=== PATIENT | female | born 1990 | race African-American/Black ===

== ENCOUNTER 2016-07-06 11:37 | Emergency (ER) | payer OTHER ==
[~2016-07-06] VITALS: Ht 167.6 cm; Wt 132.9 kg
[~2016-07-06 11:37] MED LIST: FLEXERIL PO; IBUPROFEN 800800 M1 PO; IBUPROFEN 800800 MG PO
[2016-07-06 11:38] VITALS: BP 131/90
[2016-07-06] MEDS ORDERED: MOBIC15 MG PO (12:31)
[2016-07-06] MEDS ORDERED: PENICILLIN V P500 MG PO (12:31)
== END 2016-07-06 12:42 | disposition home or self-care (01) ==
LOC: ER 11:37
DX: K02.9 Dental caries, unspecified (principal); K04.01 Reversible pulpitis

== ENCOUNTER 2018-02-22 13:59 | Emergency (ER) | payer OTHER ==
[~2018-02-22] VITALS: Ht 170.2 cm; Wt 138.8 kg
[~2018-02-22 13:59] MED LIST changes: +MOBIC15 MG PO; +MOBIC7.5 MG PO; +PENICILLIN V P500 MG PO
[2018-02-22 14:11] VITALS: BP 159/81
[2018-02-22] MEDS ORDERED: KEFLEX500 M1 PO (14:47)
[2018-02-22] MEDS ORDERED: MEDROLDOSEPACK PO (14:47)
== END 2018-02-22 14:55 | disposition home or self-care (01) ==
LOC: ER 13:59
DX: R21 Rash and other nonspecific skin eruption (principal)

== ENCOUNTER 2019-05-27 10:46 | Emergency (ER) | payer OTHER ==
[~2019-05-27] VITALS: Ht 170.2 cm; Wt 104.3 kg
[~2019-05-27 10:46] MED LIST changes: +KEFLEX500 M1 PO; +MEDROLDOSEPACK PO
[2019-05-27 11:40] LABS: URINE BILIRUBIN NEGATIVE (Negative); URINE BLOOD NEGATIVE (Negative); URINE CLARITY SL CLOUDY; URINE COLOR YELLOW; URINE GLUCOSE-RANDOM* NEGATIVE (Negative); URINE KETONES NEGATIVE (Negative); URINE LEUKOCYTES-REFLEX NEGATIVE (Negative); URINE NITRITE-REFLEX NEGATIVE (Negative); URINE PROTEIN (DIPSTICK) NEGATIVE (Negative); URINE UROBILINOGEN 0.2 E.U./dl (0.2-1.0)
[2019-05-27 11:52] LABS: ABSOLUTE NEUTROPHILS 11.9 thou/uL (1.4-8.2); BASOPHILS 0.4 % (0.0-2.0); HEMATOCRIT 32.8 % (37.0-47.0); HEMOGLOBIN 10.1 gm/dL (12.0-15.0); LYMPHOCYTES 13.4 % (24.0-44.0); MCH 23.9 pg (26.0-34.0); MCHC 30.7 g/dL (28.0-37.0); MCV 77.9 fL (80.0-100.0); MONOCYTES 3.8 % (1.0-8.0); PLATELET COUNT 371 thou/uL (150-400); POLYS 80.4 % (36.0-66.0); RBC 4.21 mil/uL (4.20-5.00); RDW 19.5 % (10.5-14.5); WBC 14.7 thou/uL (4.0-11.0)
[2019-05-27 12:02] LABS: CALCIUM 7.9 mg/dL (8.5-10.1); CREATININE 0.8 mg/dL (0.6-1.0)
[2019-05-27 12:03] LABS: POTASSIUM 4.3 mmol/L (3.5-5.1)
[2019-05-27 12:04] LABS: APTT 29.3 Seconds (24.5-32.8); PROTIME 10.6 Seconds (9.3-11.4)
[2019-05-27 12:08] LABS: ALBUMIN 2.7 g/dL (3.4-5.0); TOTAL BILIRUBIN 0.5 mg/dL (<0.1-1.0); TOTAL PROTEIN 7.8 g/dL (6.4-8.2)
[2019-05-27 12:12] LABS: ANISOCYTOSIS 1+; PLATELET ESTIMATE NORMAL
[2019-05-27] MEDS ORDERED: ANUSOL-HC25 MG RECTAL (12:46)
[2019-05-27 12:47] VITALS: BP 154/94
== END 2019-05-27 13:08 | disposition home or self-care (01) ==
LOC: ER 10:46
PROVIDERS: Physician Assistant
DX: K62.5 Hemorrhage of anus and rectum (principal); D64.9 Anemia, unspecified; D72.829 Elevated white blood cell count, unspecified; K30 Functional dyspepsia; E66.01 Morbid (severe) obesity due to excess calories; Z87.891 Personal history of nicotine dependence

== ENCOUNTER 2019-06-26 14:27 | Emergency (ER) | payer OTHER ==
[~2019-06-26] VITALS: Ht 170.2 cm; Wt 140.6 kg
[~2019-06-26 14:27] MED LIST changes: +ANUSOL-HC25 MG RECTAL
[2019-06-26] MEDS ORDERED: MELATONIN10 M3 PO (14:44)
[2019-06-26 15:14] LABS: URINE BILIRUBIN NEGATIVE (Negative); URINE BLOOD NEGATIVE (Negative); URINE CLARITY CLEAR; URINE COLOR YELLOW; URINE GLUCOSE-RANDOM* NEGATIVE (Negative); URINE KETONES NEGATIVE (Negative); URINE LEUKOCYTES-REFLEX NEGATIVE (Negative); URINE NITRITE-REFLEX NEGATIVE (Negative); URINE PROTEIN (DIPSTICK) NEGATIVE (Negative); URINE SPECIFIC GRAVITY 1.025 (1.005-1.035); URINE UROBILINOGEN 0.2 E.U./dl (0.2-1.0)
[2019-06-26 15:53] LABS: ABSOLUTE NEUTROPHILS 8.2 thou/uL (1.4-8.2); BASOPHILS 0.6 % (0.0-2.0); EOSINOPHILS 2.8 % (0.0-3.0); HEMATOCRIT 35.6 % (37.0-47.0); HEMOGLOBIN 10.9 gm/dL (12.0-15.0); MCH 24.4 pg (26.0-34.0); MCHC 30.5 g/dL (28.0-37.0); MCV 79.9 fL (80.0-100.0); MONOCYTES 4.8 % (1.0-8.0); PLATELET COUNT 373 thou/uL (150-400); POLYS 72.8 % (36.0-66.0); RBC 4.46 mil/uL (4.20-5.00); RDW 19.6 % (10.5-14.5); WBC 11.2 thou/uL (4.0-11.0)
[2019-06-26 15:55] LABS: ANION GAP 7 mmol/L (7-16); BUN 7 mg/dL (7-18); CALCIUM 8.4 mg/dL (8.5-10.1); CHLORIDE 102 mmol/L (98-107); CO2 27 mmol/L (21-32); CREATININE 0.8 mg/dL (0.6-1.0); GLUCOSE 103 mg/dL (74-106); POTASSIUM 3.9 mmol/L (3.5-5.1); SODIUM 136 mmol/L (136-145)
[2019-06-26 16:05] LABS: SGOT 21 U/L (15-37); SGPT 15 U/L (30-65); TOTAL BILIRUBIN 0.2 mg/dL (<0.1-1.0); TOTAL PROTEIN 8.3 g/dL (6.4-8.2); TROPONIN-I <0.06 ng/mL (<0.06)
[2019-06-26 16:38] VITALS: BP 179/90
--- NOTE | 2019-06-29 09:11 | EKG ---
[facility] [place] [address] ELECTROCARDIOGRAM REPORT Name: ALCIDES CHAVIS Room #: DEP [facility]#: [id number] Admission: 06/26/19 Attend Phys: Discharge: 06/26/19 Date of : 88 Report #: [id number] THIS REPORT FOR: cc: RADHA - Dhara family physician/PCP RADHA - Dhara family physician/PCP Navi Potter MD [facility] THIS REPORT FOR: //name// [facility] ED Test Date: 2019-06-26 Test Time: 14:34:00 Pat Name: ACLIDES CHAVIS Department: Room: Gender: Pusher Runner: : 1990 Requested By: Nettie Hart Order Number: [id number] MD: Navi Potter Measurements Intervals [place] Rate: 83 P: 20 [place]: 157 QRS: 22 QRSD: 88 T: 8 QT: 370 QTc: 435 Interpretive Statements Sinus rhythm Normal tracing No previous ECG available for comparison Electronically Signed On 06-29-2019 9:09:33 CDT by Navi Potter [email or web address] <ELECTRONICALLY SIGNED> By: Navi Potter MD, [facility] 06/29/19 0909 [id number] Navi Potter MD, FACC /EPI
== END 2019-06-26 16:38 | disposition home or self-care (01) ==
LOC: ER 14:27
PROVIDERS: Physician Assistant
DX: R07.89 Other chest pain (principal); R10.13 Epigastric pain; E66.01 Morbid (severe) obesity due to excess calories; Z68.42 Body mass index [BMI] 45.0-49.9, adult

== ENCOUNTER 2019-11-03 22:59 | Emergency (ER) | payer OTHER ==
[~2019-11-03] VITALS: Ht 167.6 cm; Wt 127.0 kg
[~2019-11-03 22:59] MED LIST changes: +MELATONIN10 M3 PO
[2019-11-03 23:02] VITALS: BP 126/99
[2019-11-04] MEDS ORDERED: KEFLEX500 M1 PO (00:20)
== END 2019-11-04 01:15 | disposition home or self-care (01) ==
LOC: ER 22:59
DX: L73.9 Follicular disorder, unspecified (principal)

== ENCOUNTER 2020-02-28 16:07 | Inpatient (IN) | payer OTHER ==
[~2020-02-28] VITALS: Ht 170.2 cm; Wt 117.9 kg
[2020-02-28 16:51] LABS: ABSOLUTE NEUTROPHILS 6.3 thou/uL (1.4-8.2); BASOPHILS 0.2 % (0.0-2.0); EOSINOPHILS 0.6 % (0.0-3.0); HEMATOCRIT 32.8 % (37.0-47.0); HEMOGLOBIN 10.4 gm/dL (12.0-15.0); LYMPHOCYTES 13.3 % (24.0-44.0); MCH 29.6 pg (26.0-34.0); MCHC 31.8 g/dL (28.0-37.0); MCV 93.2 fL (80.0-100.0); MONOCYTES 6.7 % (1.0-8.0); PLATELET COUNT 257 thou/uL (150-400); POLYS 79.2 % (36.0-66.0); RBC 3.52 mil/uL (4.20-5.00); RDW 21.4 % (10.5-14.5)
[2020-02-28 16:55] LABS: BE(vivo) -3.1 mmol/L (-2 to +3); HCO3 20.6 mmol/L (22.0-26.0); PCO2 32.4 mmHg (35.0-45.0); PO2 149.4 mmHg (80.0-100.0); pH 7.422 (7.360-7.450)
[2020-02-28 16:58] LABS: ANION GAP 13 mmol/L (7-16); BUN 5 mg/dL (7-18); CHLORIDE 101 mmol/L (98-107); CO2 23 mmol/L (21-32); CREATININE 0.9 mg/dL (0.6-1.0); GLUCOSE 98 mg/dL (74-106); POTASSIUM 3.6 mmol/L (3.5-5.1); SODIUM 137 mmol/L (136-145)
[2020-02-28 17:09] LABS: SGOT 25 U/L (15-37); SGPT 11 U/L (30-65); TOTAL BILIRUBIN 0.4 mg/dL (0.2-1.0); TOTAL PROTEIN 8.6 g/dL (6.4-8.2); TROPONIN-I <0.06 ng/mL (<0.06)
[2020-02-29] VITALS (7 sets, daily range): BP systolic 122–149; BP diastolic 66–85
--- NOTE | 2020-02-29 04:48 | NUR ---
ER ADMIT VSS. C/O MUSCLE TIGHTNESS FROM COUGHING. CALLED DANCE INSTRUCTOR AND GOT AN ORDER FOR NEW MED. VSS.
[2020-02-29 08:26] LABS: HEMATOCRIT 32.3 % (37.0-47.0); HEMOGLOBIN 10.3 gm/dL (12.0-15.0); MCH 29.1 pg (26.0-34.0); MCHC 31.9 g/dL (28.0-37.0); MCV 91.2 fL (80.0-100.0); RBC 3.54 mil/uL (4.20-5.00); RDW 21.1 % (10.5-14.5); WBC 5.4 thou/uL (4.0-11.0)
[2020-02-29 08:41] LABS: ALBUMIN 2.8 g/dL (3.4-5.0); CREATININE 0.6 mg/dL (0.6-1.0); DIRECT BILIRUBIN 0.1 mg/dL (<0.1-0.2); PHOSPHORUS 2.1 mg/dL (2.5-4.9); POTASSIUM 3.8 mmol/L (3.5-5.1); TOTAL BILIRUBIN 0.4 mg/dL (0.2-1.0); TOTAL PROTEIN 8.3 g/dL (6.4-8.2)
--- NOTE | 2020-02-29 16:21 | NUR ---
INITIAL ASSESSMENT: Received consult. APARNA reviewed chart and spoke with nursing and attending physician. Pt was admitted from home due to pneumonia/respiratory failure. Pt placed in Enhanced Isolation due to COVID-19. Pt is afebrile and on 4L of O2. Pt is on IV steroids and completing course of Remdesivir. APARNA spoke with pt via phone. Introduced role of SW. Pt is alert/orientated x 4. Pt reports she lives at home. Prior to admission, pt was independent with ADLs. No use of DME. Pt does not have a PCP. 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 Nursing provided pt with documentation needed for her employer. SW notified pt that [employer] will be contacting her to assist with Medicaid application and/or financial assistance. Pt verbalized understanding. Plan is for pt to discharge home when medically stable. APARNA is following to assist as needed with discharge planning.
[2020-03-01 04:17] VITALS: BP 141/72
--- NOTE | 2020-03-01 07:03 | NUR ---
progress pt a/o x4 up ad niles skin c/d/i iv to left wrist infusing d5ns@80cc/hr. up to br to void ambulated in rodríguez x1. reported pain that was controlled with iv pain medication. continue poc.
[2020-03-01 07:58] VITALS: BP 136/85
[2020-03-01 11:56] LABS: ANION GAP 11 mmol/L (7-16); BUN 9 mg/dL (7-18); CALCIUM 9.3 mg/dL (8.5-10.1); CHLORIDE 106 mmol/L (98-107); CO2 23 mmol/L (21-32); CREATININE 0.7 mg/dL (0.6-1.0); DIRECT BILIRUBIN < 0.1 mg/dL (<0.1-0.2); GLUCOSE 149 mg/dL (74-106); PHOSPHORUS 2.8 mg/dL (2.5-4.9); POTASSIUM 3.6 mmol/L (3.5-5.1); SGOT 13 U/L (15-37); SGPT 10 U/L (30-65); SODIUM 140 mmol/L (136-145); TOTAL BILIRUBIN 0.3 mg/dL (0.2-1.0); TOTAL PROTEIN 8.4 g/dL (6.4-8.2)
--- NOTE | 2020-03-01 14:57 | NUR ---
SW reviewed chart and spoke with nursing and attending physician. Pt remains in Enhanced Isolation due to COVID-19. Pt is afebrile and on 5L of O2. Pt is on IV steroids and completing course of Remdesivir. Pt has refused convalescent plasma. [employer] is working with pt for possible Medicaid application due to dx COVID-19. Plan is for pt to discharge home when medically stable. APARNA is following to assist as needed with discharge planning.
[2020-03-01 15:35] VITALS: BP 134/68
[2020-03-01 16:04] LABS: URINE BILIRUBIN NEGATIVE (Negative); URINE BLOOD NEGATIVE (Negative); URINE CLARITY SL CLOUDY; URINE COLOR YELLOW; URINE GLUCOSE-RANDOM* NEGATIVE (Negative); URINE KETONES NEGATIVE (Negative); URINE LEUKOCYTES-REFLEX NEGATIVE (Negative); URINE NITRITE-REFLEX NEGATIVE (Negative); URINE PROTEIN (DIPSTICK) 1+ (Negative); URINE SPECIFIC GRAVITY 1.025 (1.005-1.035); URINE UROBILINOGEN 0.2 E.U./dl (0.2-1.0)
[2020-03-01 16:17] LABS: SQUAMOUS 4-10 Moderate /LPF (0-3)
[2020-03-01 16:18] LABS: AMORPHOUS URATES Few /LPF (None Seen); BACTERIA-REFLEX 1-9 Few /HPF (None Seen); CASTS None Seen /LPF (None Seen); URINE RBC None Seen /HPF (0-2); URINE WBC-REFLEX 0-5 Rare /HPF (0-5)
[2020-03-01 19:26] VITALS: BP 130/84
--- NOTE | 2020-03-01 19:45 | NUR ---
PT WAS EDUCATED REGARDING CONVALESCENT PLASMA TRANSFUSION PER DR KIMBERLY GOMEZ AND SHE AGREES TO TRANSFUSION...
[2020-03-02 03:10] VITALS: BP 152/82
[2020-03-02 03:27] VITALS: BP 148/80; BP 152/81
--- NOTE | 2020-03-02 06:21 | NUR ---
PT MAKING PROGRESS TOWARDS GOALS. ORDER FOR CONVALESCENT PLASMAS RECEIVED. PT SIGNED CONSENT. PLASMA WAS GIVEN OVERNIGHT WITH NO OBSERVABLE NEGATIVE SIDE EFFECTS. SEE CHARTING.
[2020-03-02 09:22] VITALS: BP 127/86
[2020-03-02 12:22] VITALS: BP 152/79
--- NOTE | 2020-03-02 15:39 | NUR ---
APARNA reviewed chart and spoke with nursing and attending physician. Pt remains in Enhanced Isolation due to COVID-19. Pt is afebrile and on 2L of O2. Pt is on IV steroids and completing course of Remdesivir. Pt had convalescent plasma yesterday. SW received signed ppwk for [employer]. Left at nurses station for [employer] rep to picking tech today. Pt may qualify for Medicaid due to dx of COVID. APARNA spoke with pt via phone to discuss potential discharge needs. Pt states she is off of O2. Pt will need Health Resource Guide/prescription discount card when discharged. Pt may need assistance with medications. Plan is for pt to discharge home when medically stable. APARNA is following to assist as needed with discharge planning.
--- NOTE | 2020-03-02 15:57 | NUR ---
Assumed pt care at 7am.Pt in bed sleeping and refused light on when this rn walks into room and said she doesn't need any nursing staff at present.Rn encouraged pt to call for needs.At 9am,rn came to give am meds but pt refused and also lab draw.Dr Mukherjee notified, wanted this rn to call pt's mom for intervention.Radha chaves came to talk to pt around noon.Pt finally agreed to treatment and took meds.Assessment completed. vss and pt was sr/sb on monitor worker.No verbal c/o but pt continue to have dry cough and soa.Will continue to monitor.
[2020-03-02 17:40] VITALS: BP 136/84
[2020-03-02 19:38] VITALS: BP 151/82
[2020-03-03 04:30] VITALS: BP 155/81
--- NOTE | 2020-03-03 05:30 | NUR ---
PT MAKING PROGRESS TOWARDS GOALS. NOTED LUNGS CTA BUT DIMINISHED IN BOTH LOWER LOBES. SEE VS. PT ON ROOM AIR SINCE DAY TIME HOURS. NO COMPLAINTS VOICED OVERNIGHT.
[2020-03-03 06:20] LABS: ALBUMIN 2.9 g/dL (3.4-5.0); ANION GAP 12 mmol/L (7-16); BUN 13 mg/dL (7-18); CALCIUM 8.6 mg/dL (8.5-10.1); CHLORIDE 108 mmol/L (98-107); CO2 22 mmol/L (21-32); CREATININE 0.8 mg/dL (0.6-1.0); DIRECT BILIRUBIN < 0.1 mg/dL (<0.1-0.2); GLUCOSE 163 mg/dL (74-106); POTASSIUM 3.9 mmol/L (3.5-5.1); SGOT 19 U/L (15-37); SGPT 16 U/L (30-65); SODIUM 142 mmol/L (136-145); TOTAL BILIRUBIN 0.2 mg/dL (0.2-1.0); TOTAL PROTEIN 7.4 g/dL (6.4-8.2)
[2020-03-03 08:07] VITALS: BP 153/83
--- NOTE | 2020-03-03 11:19 | NUR ---
ASSUMED CARE AT 0700, ASSESSMENT AND VITAL SIGNS COMPLETED PER ICU PROTOCOL. DR. LOCK ROUNDED THIS AM, NO NEW ORDERS RECEIVED, PLAN OF CARE DISCUSSED. RN WILL CONTINUE TO MONITOR.
--- NOTE | 2020-03-03 13:12 | NUR ---
ON-GOING ASSESSMENT: CM REVIEWED CHART. PT REMAINS IN ENHANCED ISOLATION DUE TO COVID 19. PT CONTINUES ON REMDESIVIR. PT IS CURRENTLY ON ROOM AIR AND NOT REQUIRING OXYGEN. CM WILL CONTINUE TO FOLLOW POSSIBLE PLANS TO DISCHARGE HOME SOON.
[2020-03-03 15:49] VITALS: BP 186/96
[2020-03-03 19:00] VITALS: BP 147/90
[2020-03-04 04:38] VITALS: BP 141/73
--- NOTE | 2020-03-04 05:38 | NUR ---
PT MAKING PROGRESS TOWARDS GOALS. NO REPORTS OF SOA OVERNIGHT. PT ON ROOM AIR THROUGHOUT THE NIGHT.
[2020-03-04 07:26] VITALS: BP 145/69
[2020-03-04] MEDS ORDERED: AZITHROMYCIN500 MG PO (08:26)
[2020-03-04] MEDS ORDERED: PREDNISONE 20 M20 M1 PO (08:26)
[2020-03-04 10:51] VITALS: BP 145/69
--- NOTE | 2020-03-04 12:45 | NUR ---
ON-GOING ASSESSMENT: CM REVIEWED CHART AND PT HAS ORDERS TO DISCHARGE HOME TODAY. PT REPORTS TROUBLE WITH FINANCIAL STABILITY SO CM VOUCHERED HER MEDICATIONS AT [facility] COSTING 18 DOLLARS. APPROVED BY CM DIRECTOR. PT REPORTS NO FURTHER NEEDS FROM RISHI.
--- NOTE | 2020-03-04 13:08 | NUR ---
PT A&OX4, VSS, DENIES PAIN. PATIENT REFUSED ALL MEDS AND BLOOD SUGAR CHECKS. PATIENT ROOM AIR, LUNGS DIM. PATIENT AD SUMA. NO SIGNS OF DISRESS. PATIENT DISCHARGED HOME, ALL BELONGINGS WITH PATIENT.
== END 2020-03-04 13:32 | disposition home or self-care (01) | DRG 177 ==
LOC: ER 16:07 → 3W 18:49 → EROBS 18:49 → 3W 02-29 01:10
PROVIDERS: Physician Assistant; ADMIT Internal Medicine; ATTEND Internal Medicine
PROC: XW033E5 Introduction of Remdesivir Anti-infective into Peripheral Vein, Percutaneous Approach, New Technology Group 5 (ICD-10-PCS; principal; 2020-02-28)
PROC: XW13325 Transfusion of Convalescent Plasma (Nonautologous) into Peripheral Vein, Percutaneous Approach, New Technology Group 5 (ICD-10-PCS; 2020-03-02)
DX: U07.1 COVID-19 (principal); J12.89 Other viral pneumonia; E66.01 Morbid (severe) obesity due to excess calories; D64.9 Anemia, unspecified; J96.01 Acute respiratory failure with hypoxia; Z68.41 Body mass index [BMI] 40.0-44.9, adult; Z79.899 Other long term (current) drug therapy
CPT/HCPCS: 10879

== ENCOUNTER 2021-05-04 23:07 | Emergency (ER) | payer OTHER ==
[~2021-05-04] VITALS: Ht 167.6 cm; Wt 149.7 kg
[~2021-05-04 23:07] MED LIST changes: +AZITHROMYCIN500 MG PO; +PREDNISONE 20 M20 M1 PO
[2021-05-05 00:28] LABS: ABSOLUTE NEUTROPHILS 15.1 thou/uL (1.4-8.2); BASOPHILS 0.5 % (0.0-2.0); EOSINOPHILS 0.8 % (0.0-3.0); HEMATOCRIT 34.4 % (37.0-47.0); HEMOGLOBIN 10.5 gm/dL (12.0-15.0); LYMPHOCYTES 7.7 % (24.0-44.0); MCH 23.9 pg (26.0-34.0); MCHC 30.6 g/dL (28.0-37.0); MCV 78.3 fL (80.0-100.0); MONOCYTES 3.5 % (1.0-8.0); PLATELET COUNT 349 thou/uL (150-400); POLYS 87.5 % (36.0-66.0); RDW 19.2 % (10.5-14.5); WBC 17.3 thou/uL (4.0-11.0)
[2021-05-05 00:41] LABS: CALCIUM 8.5 mg/dL (8.5-10.1); CREATININE 0.8 mg/dL (0.6-1.0); POTASSIUM 3.8 mmol/L (3.5-5.1)
[2021-05-05] MEDS ORDERED: XANAX 0.5 MG0.5 M1 PO (01:14)
[2021-05-05 02:10] VITALS: BP 147/69
--- NOTE | 2021-05-05 08:08 | EKG ---
[address] [place] [address] ELECTROCARDIOGRAM REPORT Name: ALCIDES CHAVIS Room #: DEP Na[facility]#: [id number] Admission: 05/04/21 Attend Phys: Discharge: 05/05/21 Date of : 88 Report #: [id number] [facility] ED Test Date: 2021-05-04 Test Time: 23:32:06 Pat Name: ALCIDES CHAVIS Department: Room: Gender: F Rn On Site: ELIDA RANDOLPH : 1990 Requested By: Maximilian Cox Order Number: [id number] MD: Tao Dickey Measurements Intervals [place] Rate: 103 P: 39 ID: 142 QRS: 17 QRSD: 87 T: 3 QT: 333 QTc: 436 Interpretive Statements Sinus tachycardia Consider left atrial enlargement Abnormal inferior Q waves Borderline T abnormalities, anterior leads Compared to ECG 06/26/2019 14:34:00 Inferior Q waves now present Q waves now present T-wave abnormality now present Sinus rhythm no longer present Electronically Signed On 05-05-2021 8:08:28 CADDIE SUPERVISOR by Tao Dickey [email or web address] <ELECTRONICALLY SIGNED> By: Tao Dickey MD, [facility] 05/05/21 0808 [id number] Tao Dickey MD, [facility] /EPI
== END 2021-05-05 02:10 | disposition home or self-care (01) ==
LOC: ER 23:07
PROVIDERS: Emergency Medicine
DX: D72.829 Elevated white blood cell count, unspecified (principal); Z79.2 Long term (current) use of antibiotics